=== PATIENT | male | born 1985 | race Caucasian/White ===

== ENCOUNTER 2021-11-27 03:49 | Emergency (ER) | payer SELFPAY ==
[~2021-11-27] VITALS: Ht 165.1 cm; Wt 79.4 kg
[2021-11-27] MEDS ORDERED: AUGMENTIN 875-875 MG PO (05:11)
[2021-11-27] MEDS ORDERED: NAPROSYN500 MG PO (05:11)
== END 2021-11-27 05:21 | disposition home or self-care (01) ==
LOC: ED 03:49
DX: S90.851A Superficial foreign body, right foot, initial encounter (principal); F17.200 Nicotine dependence, unspecified, uncomplicated; W34.010A Accidental discharge of airgun, initial encounter; Y93.89 Activity, other specified; Y92.89 Other specified places as the place of occurrence of the external cause; Y99.8 Other external cause status